=== PATIENT | female | born 1995 | race Caucasian/White ===

== ENCOUNTER 2021-04-13 16:40 | Emergency (ER) | payer BC, SELFPAY ==
[2021-04-13 16:46] VITALS: BP 136/83; PULSE 117; RESP 16; TEMP 36.6; O2SAT 100; BMI 22.3
--- NOTE | 2021-04-13 17:24 | ED_ITS ---
HPI - Animal Bite General Chief Complaint: Animal Bite Stated Complaint: GOT SCRATCHED BY A BAT ON THE CHEST Time Seen by Provider: 04/13/21 16:50 Source: patient Mode of arrival: Ambulatory History of Present Illness HPI narrative: 25-year-old female nonsmoker with noncontributory medical history presents with the chief complaint high suspicion of being exposed to and possibly bitten by a bat. She was walking at desk near upon and where they frequently observed bats and was struck in the chest by flying animal which fluttered against her chest and left scratch. She is very concerned and convinced that this was a bat. She has never been vaccinated against rabies before. She has no symptoms such as chest pain, shortness of breath nor nausea, vomiting or diarrhea Related Data Allergies Allergy/AdvReac Type Severity Reaction Status Date / Time No Known Drug Allergies Allergy Verified 04/13/21 16:49 Review of Systems Review of Systems Narrative: GENERAL: Denies chills, fatigue, malaise, fever, sweats. HEENT: Denies sinus pain, ear pain, sore throat, difficulty swallowing, dizziness. RESPIRATORY: Denies dyspnea, cough, wheezing, hemoptysis, sputum. CARDIOVASCULAR: Denies chest pain, palpitations, orthopnea, edema, GASTROINTESTINAL: Denies nausea, vomiting, abdominal pain, diarrhea, constipation, melena. : Denies dysuria, frequency, incontinence, hematuria, urinary retention. MUSCULOSKELETAL: denies weakness, joint pain, or bony pain SKIN: See HPI NEUROLOGIC: Denies weakness, headache, numbness, change in speech, confusion, seizures, incoordination. PSYCHIATRIC: No concerning psychosocial issues. 12 point review of systems is negative except for those stated above Patient History Social History Smoking Status: Never smoker Smoking Status: Never smoker Substance Use Type: does not use Exam Narrative Exam Narrative: GENERAL: [25] year old patient appears stated age. Well- developed patient, in mild distress. Mildly anxious HEAD: Atraumatic. Normocephalic. EYES: Pupils equal round and reactive. Extraocular motions intact. No scleral icterus. No injection or drainage. ENT: Nose without bleeding, purulent drainage. Throat without erythema, tons illar hypertrophy or exudate. Airway patent. NECK: Trachea midline. Non tender CARDIOVASCULAR: Regular rate and rhythm without murmurs, gallops, or rubs. RESPIRATORY: Clear to auscultation. Breath sounds equal bilaterally. No wheezes, rales, or rhonchi. GASTROINTESTINAL: Abdomen soft, non-tender, nondistended. EXTREMITIES: No edema or joint tenderness. BACK: Nontender without deformity or crepitance. No flank tenderness. NEURO: AOx3. SKIN: Superficial abrasion to anterior chest in the midline overlying the sternum No rash or erythema of visible areas Initial Vital Signs Initial Vital Signs: Vital Signs Temperature 97.9 F 04/13/21 16:46 Pulse Rate 117 H 04/13/21 16:46 Respiratory Rate 16 04/13/21 16:46 Blood Pressure 136/83 04/13/21 16:46 Pulse Oximetry 100 04/13/21 16:46 Course Course Course Narrative: We had a lengthy discussion about the risks and benefits of rabies prophylaxis including the regimen of shots. After this discussion she felt most comfortable getting the rabies series of shots and states that she can initiate therapy here and will pursue the completion of the therapy which she goes back home to [place] Orders Ordered: Discontinued Medications Rabies Immune Globulin (Rabies Immune Globulin 300 Unit/Ml 1ml Vial) 1,452 unit 20 unit/kg (1452 unit) IM NOW ONE Stop: 04/13/21 17:26 Last Admin: 04/13/21 17:44 Dose: 1,452 unit Documented by: CVANCE Rabies Vaccine (Rabies Vaccine (Rabavert) 2.5 Units Syringe) 2.5 units IM .ONCE ONE Stop: 04/13/21 17:26 Last Admin: 04/13/21 17:44 Dose: 2.5 units Documented by: WENCESLAO Vital Signs Vital signs: Vital Signs - 8 hr 04/13/21 16:46 04/13/21 18:24 Temperature 97.9 F Pulse Rate 117 H 104 H Respiratory Rate 16 12 Blood Pressure 136/83 122/70 Pulse Oximetry 100 100 Discharge Plan Departure Patient Disposition: Home Clinical Impression: Rabies contact Instructions: DI for Rabies Vaccine Activity Restrictions/Additional Instructions: *You have been diagnosed with [bat exposure, possible rabies exposure ] *What to do: * this series of rabies vaccinations includes multiple shots over the next 2 weeks Shots are required on the following days #1 FridayApril 13 GIVEN #2 FridayApril 16 #3 FridayApril 20 #4 FridayApril 27. *Return to Emergency Department if you should have any new, worsening or concerning symptoms, such as [fever greater than 101 F, shaking chills, worsening pain, persistent vomiting or other bothersome symptoms]
[2021-04-13] MEDS: RABIES IMMUNE GLOBULIN 300 UNIT/ML 1mL VIAL 1452 UNIT IM (17:44)
[2021-04-13] MEDS: RABIES VACCINE (RABAVERT) 2.5 UNITS SYRINGE IM (17:44)
[2021-04-13 18:24] VITALS: BP 122/70; PULSE 104; RESP 12; O2SAT 100
== END 2021-04-13 18:24 | disposition home or self-care (01) ==
PROVIDERS: Emergency Provider Emergency Medicine
DX: S21.159A Open bite of unspecified front wall of thorax without penetration into thoracic cavity, initial encounter (principal); Z20.3 Contact with and (suspected) exposure to rabies; W55.81XA Bitten by other mammals, initial encounter; Z23 Encounter for immunization
CPT/HCPCS: 90375; 90471; 90675; 96372; 99283

== ENCOUNTER 2021-04-16 10:16 | Emergency (ER) | payer BC, SELFPAY ==
[2021-04-16 11:16] VITALS: BP 135/86; PULSE 79; RESP 16; TEMP 36.3; O2SAT 100; BMI 22.3
[2021-04-16] MEDS: RABIES VACCINE (RABAVERT) 2.5 UNITS SYRINGE IM (12:04)
--- NOTE | 2021-04-16 12:17 | ED.RECABL ---
HPI - Recheck/Abnormal Lab/Rx <MONIK Mendoza - Last Filed: 04/16/21 15:22> General Chief Complaint: Recheck/Abnormal Lab/Rx Stated Complaint: Needs 2nd dose Rabies vaccine Time Seen by Provider: 04/16/21 12:07 Source: patient Mode of arrival: Ambulatory Limitations: no limitations History of Present Illness HPI narrative: The patient is a 25-year-old female nonsmoker with history of rabies contact who presents with a chief complaint of needing her 2nd rabies vaccination. Her 1st vaccination on 04/13 after contact with a bat. She states she felt well after the vaccinations initially, denies any shortness of breath difficulty breathing itching or signs of an allergic reaction. She states she had a slight sore arm for a very short period of time, but then recovered quickly. Related Data Allergies Allergy/AdvReac Type Severity Reaction Status Date / Time No Known Drug Allergies Allergy Verified 04/13/21 16:49 Review of Systems <MONIK Mendoza - Last Filed: 04/16/21 15:22> Review of Systems Narrative: GENERAL: Denies chills, fatigue, malaise, fever, sweats. HEENT: Denies sinus pain, ear pain, sore throat, difficulty swallowing, dizziness. RESPIRATORY: Denies dyspnea, cough, wheezing, hemoptysis, sputum. CARDIOVASCULAR: Denies chest pain, palpitations, orthopnea, edema, GASTROINTESTINAL: Denies nausea, vomiting, abdominal pain, diarrhea, constipation, melena. : Denies dysuria, frequency, incontinence, hematuria, urinary retention. MUSCULOSKELETAL: denies weakness, joint pain, or bony pain SKIN: see HPI NEUROLOGIC: Denies weakness, headache, numbness, change in speech, confusion, seizures, incoordination. PSYCHIATRIC: No concerning psychosocial issues. 12 point review of systems is negative except for those stated above Patient History <MONIK Mendoza - Last Filed: 04/16/21 15:22> Social History Smoking Status: Never smoker Smoking Status: Never smoker Substance Use Type: does not use Exam <MONIK Mendoza - Last Filed: 04/16/21 15:22> Narrative Exam Narrative: GENERAL: This is a well-nourished, well-developed patient, inNo acute distress HEAD: Atraumatic. Normocephalic. No temporal or scalp tenderness. EYES: Pupils equal round and reactive. Extraocular motions intact. No scleral icterus. No injection or drainage. ENT: Nose without bleeding, purulent drainage or septal hematoma. wearing a mask. Airway patent. NECK: Trachea midline. No JVD or lymphadenopathy. Supple, nontender, no meningeal signs. CARDIOVASCULAR: Regular rate and rhythm without murmurs, gallops, or rubs. RESPIRATORY: no cough. No increased respiratory effort. No accessory muscle use. Speaking full sentences. BACK: Nontender without deformity or crepitance. No flank tenderness. NEURO: AOx3. SKIN: Very faint, barely visible healing scratch noted on anterior chest wall approximately 1 cm Initial Vital Signs Initial Vital Signs: Vital Signs Temperature 97.4 F L 04/16/21 11:16 Pulse Rate 79 04/16/21 11:16 Respiratory Rate 16 04/16/21 11:16 Blood Pressure 135/86 04/16/21 11:16 Pulse Oximetry 100 04/16/21 11:16 <Ap Orozco DO - Last Filed: 04/16/21 17:04> Initial Vital Signs Initial Vital Signs: Vital Signs Temperature 97.4 F L 04/16/21 11:16 Pulse Rate 79 04/16/21 11:16 Respiratory Rate 16 04/16/21 11:16 Blood Pressure 135/86 04/16/21 11:16 Pulse Oximetry 100 04/16/21 11:16 Course <MONIK Mendoza - Last Filed: 04/16/21 15:22> Orders Ordered: Discontinued Medications Rabies Vaccine (Rabies Vaccine (Rabavert) 2.5 Units Syringe) 2.5 units IM .ONCE ONE Stop: 04/16/21 10:27 Last Admin: 04/16/21 12:04 Dose: 2.5 units Documented by: ALMAZ Vital Signs Vital signs: Vital Signs - 8 hr 04/16/21 11:16 04/16/21 12:47 Temperature 97.4 F L Pulse Rate 79 88 Respiratory Rate 16 12 Blood Pressure 135/86 126/84 Pulse Oximetry 100 98 <DO Neva Schmitt Last Filed: 04/16/21 17:04> Orders Ordered: Discontinued Medications Rabies Vaccine (Rabies Vaccine (Rabavert) 2.5 Units Syringe) 2.5 units IM .ONCE ONE Stop: 04/16/21 10:27 Last Admin: 04/16/21 12:04 Dose: 2.5 units Documented by: ALMAZ Vital Signs Vital signs: Vital Signs - 8 hr 04/16/21 11:16 04/16/21 12:47 Temperature 97.4 F L Pulse Rate 79 88 Respiratory Rate 16 12 Blood Pressure 135/86 126/84 Pulse Oximetry 100 98 MDM - Recheck/Abnormal Lab/Rx <TRINY Mendoza-BC - Last Filed: 04/16/21 15:22> [facility] Narrative Medical decision making narrative: the patient is a 25-year-old female who presents for 2nd rabies vaccination. Given that she did well with her 1st injection, repeat vaccination was administered which was well tolerated. Given that the patient is leaving town, encouraged to follow up with primary care provider when she gets home. I encouraged her to call them today to let them know that she is going to be due for vaccinations 3. And 4 so they can help repair when she gets back to [place]. Patient has no questions or concerns upon discharge states understanding return precautions as well as follow-up care. Discharge Plan Departure Patient Disposition: Home Clinical Impression: Encounter for repeat administration of rabies vaccination Instructions: DI for Rabies Vaccine Activity Restrictions/Additional Instructions: thank you for trusting us with your care today. As discussed, you are due for 2 more rabies vaccinations #3 Friday 13 #4 FridayApril 27 since you are leaving town in going home, please follow-up with primary care provider regarding these vaccinations. I would touch base with them sooner rather than later to make sure they have a place for you to get them. in the meantime, please come back to the emergency department for any acute concerns <Ap Orozco DO - Last Filed: 04/16/21 17:04> Cosign ED Attending Cosignature Attestation: Dr Orozco Co-Sign Statement: I was available for consultation during this patient's emergency department visit. This chart is signed by myself for administrative purposes only. I did not have direct contact with this patient during this visit. They were seen independently by the APC.
[2021-04-16 12:47] VITALS: BP 126/84; PULSE 88; RESP 12; O2SAT 98
== END 2021-04-16 12:47 | disposition home or self-care (01) ==
PROVIDERS: Emergency Provider Nurse Practitioner Family
DX: Z20.3 Contact with and (suspected) exposure to rabies (principal); Z23 Encounter for immunization
CPT/HCPCS: 90471; 90675; 99283